=== PATIENT | male | born 1970 | race Hispanic/Latino ===

== ENCOUNTER 2020-10-17 03:26 | Emergency (ER) | payer BC ==
[2020-10-17] MEDS ORDERED: ACETAMINOPHEN 325 MG TAB ONE (04:03)
[2020-10-17 04:08] LABS: BASOPHILS % (AUTO) 0.2 % (0.0-5.0); EOSINOPHILS % (AUTO) 0.8 % (0.0-8.0); HEMATOCRIT 48.9 % (42-54); LYMPHOCYTES % (AUTO) 5.6 % (21.0-51.0); MEAN CORPUSCULAR HEMOGLOBIN 29.7 pg (27.0-33.0); MEAN CORPUSCULAR HGB CONC 35.4 g/dL (32.0-36.0); MONOCYTES % (AUTO) 3.6 % (3.0-13.0); NEUTROPHILS % (AUTO) 89.4 % (40.0-77.0); PLATELET COUNT (AUTO) 203 K/uL (130-400); RED BLOOD CELL COUNT(AUTO) 5.82 MIL/uL (4.50-6.20); RED CELL DISTRIBUTION WIDTH 12.1 % (11.0-15.5)
[2020-10-17 04:18] LABS: CREATININE 1.3 mg/dL (0.5-1.5); POTASSIUM 3.9 mmol/L (3.5-5.1)
[2020-10-17 04:26] LABS: ALBUMIN 3.5 g/dL (3.5-5.0); BILIRUBIN,TOTAL 1.6 mg/dL (0.2-1.0)
[2020-10-17 04:28] LABS: INR 1.14 (0.85-1.15); PARTIAL THROMBOPLASTIN TIME 34.3 SEC (26.3-35.5); PROTHROMBIN TIME 12.3 SEC (9.6-11.6)
[2020-10-17] MEDS ORDERED: 0.9% SODIUM CHLORIDE 1000 ML IV BAG IV ONE (05:09)
[2020-10-17] MEDS ORDERED: CEFTRIAXONE SODIUM 2 GM VIAL ONE (05:10)
[2020-10-17] MEDS ORDERED: DEXAMETHASONE SOD PHOSPHATE 10MG/ML 1ML VIAL ONE (05:27)
[2020-10-17] MEDS ORDERED: KETOROLAC TROMETHAMINE 15MG/ML ONE (05:27)
[2020-10-17] MEDS ORDERED: ASPIRIN 325 MG TABLET ONE (07:01)
== END 2020-10-17 07:55 | disposition home or self-care (01) ==
LOC: EDH 03:26
DX: U07.1 COVID-19 (principal); G44.209 Tension-type headache, unspecified, not intractable; G93.3 Postviral and related fatigue syndromes
CPT/HCPCS: 36415; 70450; 71045; 80053; 82948; 83605; 84484; 85025; 85610; 85730; 87040 ×2; 96361 ×2; 96374; 96375; 99285; J0696; J1100; J1885; J7030